=== PATIENT | male | born 1985 | race Caucasian/White ===

== ENCOUNTER → 2018-01-28 | Outpatient (CLI) | payer BC, OTHER ==
[~2018-01-28] MED LIST: CEFU500T5 PO; CYCL10TA9 PO; DOXY100C2 PO; HYDR-1231 PO; HYDR1TAB PO; IBP800T PO; IBUP800T26 PO; LIDOCAINE PATCH; OXYC-109 PO; OXYC1CAP3 PO; PRD20T PO; SMZ/TMP
--- NOTE | 2018-01-28 17:34 | Diagnostic Imaging Report ---
PROCEDURE: MRI lumbar spine. INDICATION: Low back pain with history of previous lumbar spine surgery in . Continued pain after surgery. TECHNIQUE: Multiplanar and multisequence noncontrast magnetic resonance imaging was performed of the lumbar spine. CORRELATION STUDY: 02/01/2015. FINDINGS: There is normal alignment and curvature of the lumbar spine. The lumbar vertebral body heights are maintained and without geographic lesion. The conus appears unremarkable. L5-S1: Moderate loss of disc space height. There is broad-based disc bulge/protrusion. Slightly more prominent protrusion to the right of midline. This results in flattening of the ventral thecal sac. There is bilateral foraminal narrowing and some abutment of the exiting nerve roots, slightly greater on the left. This appears slightly progressed from prior study. Postsurgical changes to the posterior elements with partial laminectomy on the right with alteration of the posterior soft tissues. L4-L5: Mild loss of disc space height and signal intensity. Slightly asymmetric disc bulge is present with minimal protrusion into the right foramen with right foraminal narrowing and minimal abutment of the exiting nerve root. Left foramen is better preserved. Spinal canal without significant stenosis. L3-L4: Unremarkable. L2-L3: Unremarkable. L1-L2: Moderate loss of disc space height. Minimal broad-based disc bulge with slight flattening of the ventral thecal sac, slightly greater to the right of midline. Some effacement of the perineural fat without significant nerve root impingement. The visualized portions of the abdominal aorta and kidneys are negative. No pathologically enlarged central retroperitoneal lymph nodes. IMPRESSION: 1. Right L5-S1 hemilaminotomy with alteration of the soft tissues posteriorly. 2. There is presence of disc bulge/protrusion with flattening of the ventral thecal sac and bilateral foraminal narrowing, slightly greater on the left compared to the right. Findings appear slightly progressed and/or worsened from prior study. 3. Slight effacement of the perineural fat, right greater than left, with mild abutment of the exiting nerve root at the L4-L5 level. Dictated by: Dictated on workstation # [id number]
== END ==
LOC: RAD 16:15
PROVIDERS: ATTEND Physician Assistant
DX: M51.16 Intervertebral disc disorders with radiculopathy, lumbar region (principal); M99.73 Connective tissue and disc stenosis of intervertebral foramina of lumbar region; Z98.890 Other specified postprocedural states
CPT/HCPCS: 72148

== ENCOUNTER → 2019-01-28 | Outpatient (CLI) | payer MEDICAID, OTHER ==
[2019-01-28 15:23] VITALS: BP 119/71
--- NOTE | 2019-01-28 15:23 | Cardiology Stress Test Report ---
Stress Test Report Date of Procedure/Referring: Date of Procedure: Jan 28, 2019 PCP Tk Chaparro MD Admitting Physician [facility] Baseline Heart Rate: 84 Baseline Blood Pressure: Blood Pressure Systolic: 119 Blood Pressure Diastolic: 71 Baseline EKG: Baseline EKG: normal sinus rhythm Summary/Conclusion: Summary: In summary, the patient started exercising with a baseline heart rate, blood pressure and EKG mentioned above Patient was able to exercise for a total of 9 minutes on Kai protocol, 10.5 METs Maximum heart rate 171 Maximum blood pressure 181/73 Stress EKG Minimal nondiagnostic changes Recovery EKG Return to baseline Conclusion: 1. Good exercise tolerance for a total of 9 minutes on Kai protocol, 10.5 METs, achieving 90 percent of maximum expected heart rate 2. Minimal nondiagnostic EKG changes with exercise returned to baseline during recovery 3. No arrhythmia was noted 4. Hypertensive response to exercise returned to baseline during recovery TK CHAPARRO MD Jan 28, 2019 3:23 pm
== END ==
LOC: CARD 08:58
PROVIDERS: ATTEND Internal Medicine Cardiovascular Disease
DX: R07.9 Chest pain, unspecified (principal); R06.02 Shortness of breath; Z72.0 Tobacco use; Z82.49 Family history of ischemic heart disease and other diseases of the circulatory system
CPT/HCPCS: 93017; 93306

== ENCOUNTER 2019-12-26 10:13 | Emergency (ER) | payer SELFPAY ==
[~2019-12-26] VITALS: Ht 187.9 cm; Wt 118.5 kg
[2019-12-26 10:15] VITALS: BP 111/66
--- NOTE | 2019-12-26 10:21 | ED Back Pain ---
General Chief Complaint: Back Problems Stated Complaint: BACK PAIN Nursing Triage Note: Patient states he has chronic lower back problems, states he had lumbar surgery at [facility] in 2015. He states he got out bed today and "pinched the nerves" in his back. Nursing Sepsis Screen: No Definite Risk History of Present Illness Date Seen by Provider: Dec 26, 2019 Time Seen by Provider: 10:20 Initial Comments 34-year-old male with chronic back pain presents for low back pain. Patient reports that when he got out of bed he "pinched nerves in his back" patient denies any acute injury. He reports she's got some tingling in bilateral legs. He is able and really without difficulty. He has no bowel about her issues. He recalls no increased activity or any other causes of acute flare. She denies any other systemic complaints Allergies and Home Medications Allergies Coded Allergies: No Known Drug Allergies (Unverified , 01/30/11) Patient Home Medication List Home Medication List Reviewed: Yes Review of Systems Constitutional: No chills, No fever EENTM: no symptoms reported Respiratory: no symptoms reported Cardiovascular: no symptoms reported Gastrointestinal: no symptoms reported Genitourinary: no symptoms reported Musculoskeletal: see HPI, back pain Skin: no symptoms reported Psychiatric/Neurological: See HPI Past Irrlmai-Eonbqa-Hgukbc Hx Past Med/Social Hx: Reviewed Nursing Past Med/Soc Hx Patient Social History Recent Foreign Travel: No Contact w/Someone Who Travel: No Recent Infectious Disease Expo: No Past Medical History Chronic Back Pain Physical Exam Vital Signs Vital Signs - First Documented 12/26/19 10:15 Temp 36.2 Pulse 92 Resp 16 B/P (MAP) 111/66 (81) Pulse Ox 94 O2 Delivery Room Air Capillary Refill : Less Than 3 Seconds Height, Weight, BMI Height: 6'2" Weight: 260lbs. oz. 117.332541eb; 33.00 BMI Method:Stated General Appearance: No Apparent Distress, WD/WN Neck: Non Tender, Supple Cardiovascular: Regular Rate, Rhythm Respiratory: Chest Non Tender, Lungs Clear, Normal Breath Sounds Peripheral Pulses: 2+ Radial Pulses (R), 2+ Radial Pulses (L) Gastrointestinal: Non Tender Back: Other (lower back tenderness) Extremity: Normal Capillary Refill, Normal Inspection, Normal Range of Motion Neurologic/Psychiatric: Alert, Oriented x3, No Motor/Sensory Deficits, Normal Mood/Affect, edi developer II-XII Norm as Tested, Other (he flexes 2+ and normal, all lower extremity muscle testing within normal limits) Skin: Normal Color, Warm/Dry Lymphatic: No Adenopathy Progress/Results/Core Measures Results/Orders My Orders Orders - RADHA AVILA DO Toradol 60 Mg Im (12/26/19 10:27) Norflex 60 Mg Im (12/26/19 10:27) Vital Signs/I&O 12/26/19 10:15 Temp 36.2 Pulse 92 Resp 16 B/P (MAP) 111/66 (81) Pulse Ox 94 O2 Delivery Room Air Blood Pressure Mean: 81 Departure Impression Primary Impression: Chronic back pain Qualified Codes: M54.41 - Lumbago with sciatica, right side; M54.42 - Lumbago with sciatica, left side; G89.29 - Other chronic pain Disposition: 01 HOME, SELF-CARE Condition: Stable Departure-Patient Inst. Referrals: [facility] (PCP/Family) Primary Care Physician Patient Instructions: MANAGING YOUR CHRONIC PAIN, Low Back Pain (DC), Radiculopathy (DC) Add. Discharge Instructions: Emergency department focuses on treating and ruling out life-threatening diseases. Whenever possible, a diagnosis is given. However, most patients are given an impression based on their history, physical exam, and workup during your brief time in the ER. Information about probable diagnosis and other educational material has been provided. Please take the time to read and understand this information. It is very important that you follow up with a physician as discussed during the visit today. Failure to adhere to your follow-up instructions may lead to severe disability, injury, or so please make sure to keep your appointments or obtain one as requested. Please keep in mind the emergency department is not designed to your primary care or "family doctor" and nonurgent issues are best evaluated by an outpatient physician All discharge instructions reviewed with patient and/or family. Voiced understanding. Scripts Baclofen (Baclofen) 5 Mg Tablet 5 MG PO TID, #15 TAB Prov: JAIME AVILAR L DO 12/26/19 Diclofenac Potassium (Diclofenac Potassium) 50 Mg Tablet 50 MG PO BID, #10 TAB Prov: AVILASMITHARADHA L DO 12/26/19 RADHA AVILA DO Dec 26, 2019 10:21
[2019-12-26] MEDS ORDERED: ORPHENADRINE 60 MG/2 ML (NORFLEX) AMP (ED ONLY) IM STA (10:27)
[2019-12-26] MEDS ORDERED: KETOROLAC 60 MG/2 ML VIAL IM STA (10:27)
[2019-12-26] MEDS ORDERED: DICL50TA4 PO (10:33)
[2019-12-26] MEDS ORDERED: BACL5TAB PO (10:33)
== END 2019-12-26 10:40 | disposition home or self-care (01) ==
LOC: EDUNIT# 10:13 → ER FS 10:14
DX: G89.29 Other chronic pain (principal); M54.5 Low back pain
CPT/HCPCS: 99284

== ENCOUNTER 2020-08-31 15:19 | Emergency (ER) | payer SELFPAY ==
[~2020-08-31] VITALS: Ht 187.9 cm; Wt 112.8 kg
[~2020-08-31 15:19] MED LIST changes: +BACL5TAB PO; +DICL50TA4 PO
[2020-08-31 15:21] VITALS: BP 145/80
[2020-08-31] MEDS ORDERED: ACHD5005 PO (15:38)
--- NOTE | 2020-08-31 15:39 | ED General ---
General Chief Complaint: Chest Wall Stated Complaint: LT RIB INJ Nursing Triage Note: Patient reports he was moving a safe last night, states when the safe rolled over a doorway, it bounced and hit him on his left ribcage. He reports pain in the left side with movement and deep breathing. Nursing Sepsis Screen: No Definite Risk History of Present Illness Date Seen by Provider: Aug 31, 2020 Time Seen by Provider: 15:30 Initial Comments 35-year-old male presents with an injury to his left chest in which he was helping move a safe out of his father's house and the safe "bounced" over the threshold hitting him in his left lower chest causing a popping sensation in his left lateral chest. Since then he has had pain with movement pain with deep breath and is concerned he broke a rib. He denies a history of rib fractures or any other injury or pain. Allergies and Home Medications Allergies Coded Allergies: No Known Drug Allergies (Unverified , 01/30/11) Home Medications Baclofen 5 Mg Tablet, 5 MG PO TID Prescribed by: RADHA AVILA on 12/26/19 1033 Diclofenac Potassium 50 Mg Tablet, 50 MG PO BID Prescribed by: RADHA AVILA on 12/26/19 1033 Hydrocodone/Acetaminophen 1 Each Tablet, 1 EACH PO Q4H Prescribed by: LUANNE PRAJAPATI on 08/31/20 1539 Patient Home Medication List Home Medication List Reviewed: Yes Review of Systems Review of Systems Constitutional: no symptoms reported; No fever, No malaise, No weakness Respiratory: see HPI; No cough, No short of breath, No stridor, No wheezing Cardiovascular: see HPI, chest pain (rib pain 2 to trauma); No edema, No palpitations, No syncope, No vascular heart diseas Gastrointestinal: No abdominal pain, No nausea, No vomiting Musculoskeletal: No back pain, No joint pain; other (rib pain - left chest wall) Skin: No change in color, No lesions, No lumps, No rash Past Djhrhpg-Wmfxcl-Eqjzvo Hx Past Med/Social Hx: Reviewed Nursing Past Med/Soc Hx Patient Social History Alcohol Use: Denies Use Drug of Choice: Denies drug use 08/31/20 Smoking Status: Current Everyday Smoker Type Used: Cigarettes 2nd Hand Smoke Exposure: No Recent Infectious Disease Expo: No Recent Hopitalizations: No Seasonal Allergies Seasonal Allergies: No Past Medical History Surgeries: Yes (lower back surgery) Orthopedic Respiratory: No Cardiac: No Neurological: No Genitourinary: No Gastrointestinal: No Musculoskeletal: Yes Chronic Back Pain Endocrine: No HEENT: No Cancer: No Psychosocial: No Integumentary: No Blood Disorders: No Physical Exam Vital Signs Vital Signs - First Documented 08/31/20 15:21 Temp 36.8 Pulse 121 Resp 18 B/P (MAP) 145/80 (101) Pulse Ox 98 O2 Delivery Room Air Capillary Refill : Less Than 3 Seconds Height, Weight, BMI Height: 6'2" Weight: 260lbs. oz. 117.097456ud; 31.00 BMI Method:Stated General Appearance: No Apparent Distress, WD/WN Respiratory: Lungs Clear, Normal Breath Sounds, No Accessory Muscle Use, No Respiratory Distress, Other (tenderness - lateral chest wall w AP compression of chest....as well as point TTP same area lateral chest wall. (Exam c/w single rib fx)) Cardiovascular: Regular Rate, Rhythm, No Edema, No Gallop, No JVD, Normal Peripheral Pulses Progress/Results/Core Measures Suspected Sepsis Recent Fever Within 48 Hours: No Infection Criteria Present: None New/Unexplained Altered Menta: No Sepsis Screen: No Definite Risk SIRS Temperature: Pulse: 121 Respiratory Rate: 18 Blood Pressure 145 /80 Mean: 101 Results/Orders Vital Signs/I&O 08/31/20 15:21 Temp 36.8 Pulse 121 Resp 18 B/P (MAP) 145/80 (101) Pulse Ox 98 O2 Delivery Room Air Capillary Refill : Less Than 3 Seconds Blood Pressure Mean: 101 Departure Impression Primary Impression: Fracture of rib Qualified Codes: S22.32XA - Fracture of one rib, left side, initial encounter for closed fracture Disposition: HOME, SELF-CARE Condition: Stable Departure-Patient Inst. Decision time for Depature: 15:36 Referrals: HILLARY MATA APRN (PCP) Primary Care Physician [facility]]/[facility] (Family) Primary Care Physician Patient Instructions: Rib Fracture (DC) Add. Discharge Instructions: Follow up with your PCP in 1 week All discharge instructions reviewed with patient and/or family. Voiced understanding. Scripts Hydrocodone/Acetaminophen (Hydrocodone-Acetamin 5-325 mg) 1 Each Tablet 1 EACH PO Q4H for Abdominal Pain, #20 TAB Prov: ROVENSTINE,LUANNE Mildred DO 08/31/20 LUANNE PRAJAPATI DO Aug 31, 2020 15:39
== END 2020-08-31 15:41 | disposition home or self-care (01) ==
LOC: EDUNIT# 15:19 → ER FS 15:21
DX: S22.32XA Fracture of one rib, left side, initial encounter for closed fracture (principal); G89.29 Other chronic pain; M54.9 Dorsalgia, unspecified; F17.210 Nicotine dependence, cigarettes, uncomplicated; Z79.891 Long term (current) use of opiate analgesic; W22.8XXA Striking against or struck by other objects, initial encounter
CPT/HCPCS: 99283

== ENCOUNTER 2021-03-15 01:24 | Emergency (ER) | payer SELFPAY ==
[~2021-03-15] VITALS: Ht 187.9 cm; Wt 102.5 kg
[~2021-03-15 01:24] MED LIST changes: +ACHD5005 PO
[2021-03-15 01:26] VITALS: BP 136/74
--- NOTE | 2021-03-15 01:44 | ED General ---
General Chief Complaint: General Problems/Pain Stated Complaint: LT SIDE FACIL SWELL;CHEST PAIN Nursing Triage Note: Patient states that he broke a tooth off several weeks ago and now the left side of his face is swollen. Patient also states that he is having chest pain that started last night. Patient did break a rib a few weeks ago. Patient denies having any other medical problems. Source of Information: Patient Exam Limitations: No Limitations History of Present Illness Date Seen by Provider: Mar 15, 2021 Time Seen by Provider: 01:25 Initial Comments Patient is a 35-year-old male who presents with longstanding left-sided facial/dental pain with increased facial swelling and redness prior to ED arrival. Patient states facial swelling began 30 minutes ago. Has not had fever chills nausea vomiting or sweats. Is not take any medication. No [facility] no dentist since breaking his tooth years ago. Patient also reports central chest pain while at rest. No fever chills, nausea vomiting or sweats. No abdominal pain. No shortness of breath. No cough, sore throat. No medications or therapies prior to ED arrival. Timing/Duration: 1/2 Hour Severity: Moderate Modifying Factors: improves with Other Associated Systoms: Other Allergies and Home Medications Allergies Coded Allergies: No Known Drug Allergies (Unverified , 01/30/11) Patient Home Medication List Home Medication List Reviewed: Yes Baclofen (Baclofen) 5 Mg Tablet, 5 MG PO TID Prescribed by: RADHA AVILA on 12/26/19 1033 Diclofenac Potassium (Diclofenac Potassium) 50 Mg Tablet, 50 MG PO BID Prescribed by: RADHA AVILA on 12/26/19 1033 Hydrocodone/Acetaminophen (Hydrocodone-Acetamin 5-325 mg) 1 Each Tablet, 1 EACH PO Q4H Prescribed by: LUANNE PRAJAPATI on 08/31/20 1539 Review of Systems Review of Systems Constitutional: see HPI EENTM: see HPI Respiratory: see HPI Cardiovascular: see HPI Gastrointestinal: see HPI Genitourinary: see HPI Musculoskeletal: see HPI Skin: see HPI Psychiatric/Neurological: See HPI Hematologic/Lymphatic: See HPI Immunological/Allergic: see HPI All Other Systems Reviewed Negative Unless Noted: Yes Past Hxnwsnf-Ygzrek-Pyqdlu Hx Patient Social History Tobacco Use?: Yes Tobacco type used: Cigarettes Smoking Status: Current Everyday Smoker Substance use?: No Alcohol Use?: No Pt feels they are or have been: No Seasonal Allergies Seasonal Allergies: No Past Medical History Surgery/Hospitalization HX: Broken Tooth, Rib Fracture Surgeries: Yes (lower back surgery) Orthopedic Respiratory: No Cardiac: No Neurological: No Genitourinary: No Gastrointestinal: No Musculoskeletal: Yes Chronic Back Pain Endocrine: No HEENT: No Cancer: No Psychosocial: No Integumentary: No Blood Disorders: No Physical Exam Vital Signs Vital Signs - First Documented 03/15/21 01:26 Temp 37.0 Pulse 106 Resp 16 B/P (MAP) 136/74 (94) Pulse Ox 97 O2 Delivery Room Air Capillary Refill : Less Than 3 Seconds Height, Weight, BMI Height: 6'2" Weight: 260lbs. oz. 117.007433fe; 29.00 BMI Method:Stated General Appearance: Anxious Eyes: Bilateral Eye Normal Inspection, Bilateral Eye PERRL, Bilateral Eye EOMI HEENT: PERRL/EOMI, Pharynx Normal, Moist Mucous Membranes, Other (Left submandibular/buccal swelling without erythema fluctuance. Widespread dental erosions with dental fracture and facility of facial swelling) Neck: Full Range of Motion, Non Tender, Supple Respiratory: Chest Non Tender, Lungs Clear, Normal Breath Sounds Cardiovascular: Regular Rate, Rhythm, No Edema Gastrointestinal: Non Tender, Soft Extremity: Normal Inspection Focused Exam Sepsis Stage: Ruled Out Progress/Results/Core Measures Suspected Sepsis SIRS Temperature: Pulse: 106 Respiratory Rate: 16 Blood Pressure 136 /74 Mean: 94 Results/Orders My Orders Orders - JAKE PALMER DO Clindamycin Capsule (Cleocin Capsule) (03/15/21 01:45) Ibuprofen Tablet (Motrin Tablet) (03/15/21 01:45) Vital Signs/I&O 03/15/21 01:26 Temp 37.0 Pulse 106 Resp 16 B/P (MAP) 136/74 (94) Pulse Ox 97 O2 Delivery Room Air Capillary Refill : Less Than 3 Seconds Blood Pressure Mean: 94 Departure Communication (Admissions) EKG: Sinus tach, rate 102, no acute ST-T wave changes. Patient with left facial swelling/pain consistent with early cellulitis from dental caries. Antibiotics and pain medication given. Nonspecific chest wall pain with increased anxiety state. Normal EKG. Recommendations are supportive care watchful waiting and PCP follow-up. Impression Primary Impression: Left facial swelling Additional Impressions: Dental caries Chest pain Disposition: HOME, SELF-CARE Condition: Stable Departure-Patient Inst. Decision time for Depature: 01:43 Referrals: HILLARY MATA APRN (PCP) Primary Care Physician [facility] (Family) Primary Care Physician Patient Instructions: Chest Pain, Adult ED, Tooth Decay, Adult Add. Discharge Instructions: Please fill prescriptions pain medication antibiotics in the morning and take as directed. Additionally, you may take 600 mg of ibuprofen 3 times daily. Contact local dentist of choice and schedule follow-up appointment in the next 1 to 2 days without fail. Return to the ER if new or worsening symptoms All discharge instructions reviewed with patient and/or family. Voiced understanding. Scripts Tramadol HCl (Tramadol HCl) 50 Mg Tablet 50 MG PO Q6H PRN for PAIN for 3 Days, #12 TAB 0 Refills Prov: JAKE PALMER DO 03/15/21 Clindamycin HCl (Clindamycin HCl) 300 Mg Capsule 300 MG PO QID, #80 CAP Prov: JAKE PALMER DO 03/15/21 JAKE PALMER DO Mar 15, 2021 01:44
[2021-03-15] MEDS ORDERED: CLINDAMYCIN 150 MG (CLEOCIN) CAP PO ONE (01:45)
[2021-03-15] MEDS ORDERED: IBUPROFEN 800 MG (MOTRIN) TAB PO ONE (01:45)
[2021-03-15] MEDS ORDERED: TRM50T PO (01:46)
[2021-03-15] MEDS ORDERED: CLIN-144 PO (01:46)
== END 2021-03-15 01:48 | disposition home or self-care (01) ==
LOC: EDUNIT# 01:24 → ER FS 01:27
DX: R22.0 Localized swelling, mass and lump, head (principal); K02.9 Dental caries, unspecified; R07.9 Chest pain, unspecified; G89.29 Other chronic pain; M54.9 Dorsalgia, unspecified; F17.210 Nicotine dependence, cigarettes, uncomplicated; Z79.891 Long term (current) use of opiate analgesic
CPT/HCPCS: 93005

== ENCOUNTER 2021-09-17 21:32 | Emergency (ER) | payer SELFPAY ==
[~2021-09-17] VITALS: Ht 187 cm; Wt 103.0 kg
[~2021-09-17 21:32] MED LIST changes: +CLIN-144 PO; +TRM50T PO
[2021-09-17 21:36] VITALS: BP 136/89
[2021-09-17] MEDS ORDERED: FLUORESCEIN (FLUOR-I-STRIPS) 1 MG STRP OU ONE (21:45)
[2021-09-17] MEDS ORDERED: TETRACAINE 0.5% OPHTH SOLN 4 ML BTL (SINGLE DOSE ONLY) OU ONE (21:45)
--- NOTE | 2021-09-17 22:02 | ED EENT ---
History of Present Illness General Chief Complaint: Eye Problems Stated Complaint: OBJECT IN LEFT EYE History of Present Illness Date Seen by Provider: September 17, 2021 Time Seen by Provider: 21:46 Initial Comments 36-year-old male is here with complaints of left eye irritation with suspicion that he may have had some grass or foreign body go into the he was trimming we eds around his house today. His eye has been tearing and he feels a gritty sensation in the eye. Denies visual loss, blurry vision, eye discharge. Allergies and Home Medications Allergies Coded Allergies: No Known Drug Allergies (Unverified , 01/30/11) Patient Home Medication List Home Medication List Reviewed: Yes Baclofen (Baclofen) 5 Mg Tablet, 5 MG PO TID Prescribed by: RADHA AVILA on 12/26/19 1033 Clindamycin HCl (Clindamycin HCl) 300 Mg Capsule, 300 MG PO QID Prescribed by: JAKE PALMER on 03/15/21 0146 Diclofenac Potassium (Diclofenac Potassium) 50 Mg Tablet, 50 MG PO BID Prescribed by: RADHA AVILA on 12/26/19 1033 Hydrocodone/Acetaminophen (Hydrocodone-Acetamin 5-325 mg) 1 Each Tablet, 1 EACH PO Q4H Prescribed by: LUANNE PRAJAPATI on 08/31/20 1539 Tramadol HCl (Tramadol HCl) 50 Mg Tablet, 50 MG PO Q6H PRN for PAIN Prescribed by: JAKE PALMER on 03/15/21 0146 Review of Systems Review of Systems Constitutional: no symptoms reported Eyes: Other (irritation and foreign body sensation) Ears: No Symptoms Reported Nose: no symptoms reported Mouth: no symptoms reported Throat: no symptoms reported Respiratory: no symptoms reported Cardiovascular: no symptoms reported Gastrointestinal: no symptoms reported Musculoskeletal: no symptoms reported Skin: no symptoms reported Neurological: No Symptoms Reported Hematologic/Lymphatic: No Symptoms Reported Immunological/Allergic: no symptoms reported Past Bxtuqsy-Trgkoh-Sbaqqs Hx Patient Social History Tobacco Use?: Yes Tobacco type used: Cigarettes Smoking Status: Current Everyday Smoker Use of E-Cig and/or Vaping dev: No Substance use?: No Alcohol Use?: Yes Pt feels they are or have been: No Seasonal Allergies Seasonal Allergies: No Past Medical History Surgery/Hospitalization HX: Broken Tooth, Rib Fracture Surgeries: Yes (lower back surgery) Orthopedic Respiratory: No Cardiac: No Neurological: No Genitourinary: No Gastrointestinal: No Musculoskeletal: Yes Chronic Back Pain Endocrine: No HEENT: No Cancer: No Psychosocial: No Integumentary: No Blood Disorders: No Physical Exam Height, Weight, BMI Height: 6'2" Weight: 260lbs. oz. 117.536501cw; 29.00 BMI Method:Stated General Appearance: WD/WN, no apparent distress Eyes: left eye PERRL, left eye EOMI, left eye conjunctival inflammation, left eye lid inflammation Neurologic/Psychiatric: alert, normal mood/affect, oriented x 3 Skin: normal color Procedures/Interventions Eye : Eye Irrigated w/ Saline (ccs): 20 Anesthesia (gtts): Tetracaine Intraocular Pressure: (L) eye (MM) Progress/Procedure Conclusion LEFT CONJUNCTIVITIS: - Wood's Lamp used, fluorescin test negative - No foreign body Progress/Results/Core Measures Results/Orders My Orders Orders - TRINI GIBBS MD Tetracaine 0.5% Ophth Sun Sdv (Tetracai (09/17/21 21:45) Fluorescein Strips (Gchbg-H-Thmvdh) (09/17/21 21:45) Medications Given in ED Current Medications Medications Dose Ordered Sig/Eddy Route Start Time Stop Time Status Last Admin Dose Admin Fluorescein Sodium 1 mg ONCE ONCE OU 09/17/21 21:45 09/17/21 21:47 DC 09/17/21 21:51 1 MG Tetracaine HCl 4 ml ONCE ONCE OU 09/17/21 21:45 09/17/21 21:47 DC 09/17/21 21:51 4 ML Progress Progress Note : Progress Note 1. LEFT EYE CONJUNCTIVITIS/ SENSATION OF FOREIGN BODY -Erythromycin ophthalmic ointment for 7 days QID - Moderate irrigation with NS - Normal Fluorescin test: no abrasions of cornea or conjunctiva -Artificial tears as needed, OTC - Follow up with instructional technology specialist or PCP within 7 days - No foreign body in eye Departure Impression Primary Impression: Conjunctivitis Qualified Codes: H10.32 - Unspecified acute conjunctivitis, left eye Additional Impressions: Irritation of left eye Sensation of foreign body in eye Disposition: HOME, SELF-CARE Condition: Improved Departure-Patient Inst. Referrals: SELF,LEATHA VELASQUEZ (PCP/Family) Primary Care Physician Patient Instructions: How to Use Eye Ointment, Conjunctivitis ([facility]) ED Add. Discharge Instructions: -Erythromycin ophthalmic ointment for 7 days QID -Artificial tears as needed, OTC - Follow up with instructional technology specialist or PCP within 7 days All discharge instructions reviewed with patient and/or family. Voiced u nderstanding. Scripts Erythromycin Base (Erythromycin Opthalmic Ointment) 5 Mg/Gram (0.5 %) Oint...g. 0 OP Q4H for 7 Days, #1 EA 1/2 inch Prov: TRINI GIBBS MD 09/17/21 TRINI GIBBS MD September 17, 2021 22:02
[2021-09-17] MEDS ORDERED: ERYT1OIN6 OP (22:05)
[2021-09-17] MEDS ORDERED: ERYTHROMYCIN OPHTH OINT 1 GM (SINGLE USE) TUBE OP STA (22:06)
== END 2021-09-17 22:15 | disposition home or self-care (01) ==
LOC: EDUNIT# 21:32 → ER FS 21:35
DX: H10.32 Unspecified acute conjunctivitis, left eye (principal); F17.210 Nicotine dependence, cigarettes, uncomplicated; R68.89 Other general symptoms and signs
CPT/HCPCS: 99281